=== PATIENT | female | born 1945 | race Caucasian/White ===

== ENCOUNTER 2023-10-17 08:29 | Emergency (ER) | payer MEDICARE, BC, SELFPAY ==
[2023-10-17 08:31] VITALS: BP 163/92
--- NOTE | 2023-10-17 09:02 | ED.GENMED ---
History of Present Illness
<Samara Brooks, CHEMICAL PROCESSOR - Last Filed: 10/17/23 22:23>
General
Chief Complaint: Eye Problems
Source: patient
Exam Limitations: none
Time Seen by Provider: 10/17/23 09:02
Nursing documentation reviewed up to this point in time: agreed with
Travel History
Have you had any contact with someone who has COVID-19?: No
Do you have any symptoms of coronavirus? Fever > 100 degrees, chills, cough, shortness of breath, sore throat, loss of taste or smell, muscle aches, or headache?: No
History of Present Illness
History of Present Illness:
78-year-old female with history of HTN, HLD presents stating her eyes have gotten progressively more red and swollen over past week. Went to 10/12 and has been applying Polymyxin B TMP eye drops 3-4 times a day with worsening symptoms. Two days
ago noted 'blisters' in her eyes. Wakens with eyes glued shut.
She had sinus stuffiness and nasal discharge the week before her symptoms started.
Denies change in vision, denies headache.
She did start using a new eye makeup remover 'Micellar' 3 days prior to symptoms
Continue present medications
Past History
<Samara Brooks, CHEMICAL PROCESSOR - Last Filed: 10/17/23 22:23>
Past History
ED Past Medical History: HTN and Hypercholesterolemia
Social History
Tobacco: Non-smoker
Alcohol: None
Personal:
Living: with family
Employment: Employed
Family History
Family History: Other (Father with a stroke, mother with CHF)
Review of Systems
<Samara Brooks, CHEMICAL PROCESSOR - Last Filed: 10/17/23 22:23>
Review of Systems
Allergies reviewed?: Yes
All Other Systems: ROS reviewed and negative except as documented in HPI and ROS
Constitutional: Denies fever
EENT: Reports other (Sinus stuffiness and tenderness, left neck tender node, blowing nose yellow mucus, redness and swelling, discharge both eyes. )
ABD/GI: Denies nausea or vomiting
Skin: Reports no symptoms
Neurological: Denies headache
Phy Exam
<Samara Brooks, CHEMICAL PROCESSOR - Last Filed: 10/17/23 22:23>
Physical Exam
Physical Exam:
GENERAL: No acute distress. A&Ox3.
CONSTITUTIONAL: Afebrile.
EYES: PERRL, conjunctivae injected, mild chemosis, EOMs intact, binates
Neck: Supple, mildly enlarge, mildly tender left cervical node
ENMT: moist mucus membranes, Pharynx nl, TMs normal, mild tenderness bilateral maxillary sinuses, clear nasal discharge, boggy tur
RESPIRATORY: Regular respirations, nonlabored, lungs clear.
CARDIOVASCULAR: Regular rate and rhythm, no murmurs, no rubs.
MUSCULOSKELETAL: Moves with ease. Well perfused.
SKIN: Warm, dry, pink
PSYCH: Normal mood and affect. Well kept, interactive and appropriate
NEUROLOGIC: Awake, alert and oriented. No focal neurological deficits
Course
<Samara Brooks, CHEMICAL PROCESSOR - Last Filed: 10/17/23 22:23>
Orders/Labs/Results
Orders:
Orders
10/17/23 09:20
Visual Acuity- Treatment ONCE
Vital Signs
Initial and Last Documented VS:
Initial Vital Signs
Temp Pulse Resp BP Pulse Ox
98 F 78 16 163/92 97
10/17/23 08:31 10/17/23 08:31 10/17/23 08:31 10/17/23 08:31 10/17/23 08:31
Last Documented Vital Signs
Temp Pulse Resp BP Pulse Ox
98 F 78 16 163/92 97
10/17/23 08:31 10/17/23 08:31 10/17/23 08:31 10/17/23 08:31 10/17/23 08:31
<Jhon De La Rosa DO - Last Filed: 10/17/23 09:34>
Orders/Labs/Results
Orders:
Orders
10/17/23 09:20
Visual Acuity- Treatment ONCE
Vital Signs
Initial and Last Documented VS:
Initial Vital Signs
Temp Pulse Resp BP Pulse Ox
98 F 78 16 163/92 97
10/17/23 08:31 10/17/23 08:31 10/17/23 08:31 10/17/23 08:31 10/17/23 08:31
Last Documented Vital Signs
Temp Pulse Resp BP Pulse Ox
98 F 78 16 163/92 97
10/17/23 08:31 10/17/23 08:31 10/17/23 08:31 10/17/23 08:31 10/17/23 08:31
<Samara Brooks CHEMICAL PROCESSOR - Last Filed: 10/17/23 22:23>
MDM/Problems Addressed
Differential Diagnosis Includes:
chemical conjunctivitis, sensitivity/allergy to eye drops
sinusitis viral vs bacterial
MDM/Problems Addressed:
78-year-old female with history of HTN, HLD presents stating her eyes have gotten progressively more red and swollen over past week. Went to 10/12 and has been applying Polymyxin B TMP eye drops 3-4 times a day with worsening symptoms. Two days
ago noted 'blisters' in her eyes. Wakens with eyes glued shut.
She had sinus stuffiness and nasal discharge the week before her symptoms started.
Denies change in vision, denies headache.
She did start using a new eye makeup remover 'Micellar' 3 days prior to symptoms
3 days after the sinus started bothering her she started getting irritation in both eyes
Her eyes are getting worse and now they are getting 'blisters'
No Augmentin's allergic to penicillin
No Bactrim pt on Lisinopril
Dr. De La Rosa in to evaluate, agrees, sinusitis, conjunctivitis most likely from Neomycin eye drops
Plan: Stop the eye drops
Rx for Doxycycline, Flonase and Prednisone sent to her pharmacy
<Samara Brooks, CHEMICAL PROCESSOR - Last Filed: 10/17/23 22:23>
*Critical Care Note
Total Time (30-74mins, 75-104mins- exclusive of procedures): Not Applicable
ED Attending Note
<Samara Brooks, CHEMICAL PROCESSOR - Last Filed: 10/17/23 22:23>
-
Portions of this chart may have been created with voice recognition software.� Occasional wrong word or��sound alike� substitutions may have occurred due to the inherent limitations of voice recognition software.
<Jhon De La Rosa, - Last Filed: 10/17/23 09:34>
ED Attending Note
Patient seen and examined by attending physician: Yes
I performed the substantive portion of visit, reviewed & personally made and approve the management plan that is documented in note by myself or MARIE.: Yes
ED Attending Note:
Patient is 78-year-old female presents with red watery eyes after being placed on polymyxin eyedrops for what was thought to be a bilateral conjunctivitis following nasal congestion and sinus pressure. That started 10 days ago. Patient states that
has not improved but the eyes are getting worse. Patient also noticed a mild swelling and pain in her left neck. Patient denies coughing or shortness of breath. On physical exam patient appears to be in good health. However patient does have
significantly injected conjunctiva bilaterally with increased tearing. Nares are swollen with clear rhinorrhea and mild tenderness over the sinuses. Oropharynx is clear. Neck is supple with a mildly tender anterior/submandibular node on the left.
Patient appears to have sinusitis. Also reaction to the eyedrops. Eyedrops will be stopped. Patiently placed on steroids and antibiotics.
Discharge Plan
Departure
Patient Disposition: Home (Routine Discharge)
Date of Disposition: 10/17/23
Time of Disposition: 09:28
Patient with high blood pressure during this ER visit?: No
Condition: Good
Discharge Problem:
Acute conjunctivitis, bilateral, Acute sinusitis
Instructions: Conjunctivitis (Noninfectious Pinkeye), Sinusitis, Adult ED
Prescriptions:
New
fluticasone propionate [Flonase Allergy Relief] 50 mcg/actuation spray,suspension
1 spray intranasal BID Qty: 16 0RF
doxycycline hyclate 100 mg capsule
100 mg PO BID Qty: 20 0RF
prednisone 20 mg tablet
40 mg PO DAILY Qty: 8 0RF
No Action
metoprolol succinate 200 MG tablet extended release 24 hr
200 mg PO BID
lisinopril 20 MG tablet
20 mg PO BID
hydralazine 25 MG tablet
25 mg PO BID
aspirin [Aspir-Low] 81 MG tablet,delayed release (DR/EC)
81 mg PO DAILY
docosahexaenoic acid-epa 1 CAP capsule
1 cap PO BID
Activity Restrictions/Additional Instructions:
As we discussed, stop the eyedrops.
I sent a prescription to your pharmacy for Flonase nasal spray, Prednisone steroid and doxycycline antibiotic. These should help your eyes and your sinuses.
See your doctor in 5 to 7 days if you are not much improved by then.
Interventions
Interventions:
*Risk Screen - Suicide Last Done: 10/17/23 08:31
*General Assessment Last Done: 10/17/23 08:31
*Neglect/Abuse Screening Last Done: 10/17/23 08:31
ED- Fall Risk Assessment Last Done: 10/17/23 09:38
*ED COVID-19 Vaccine History Last Done: 10/17/23 09:25
*Nursing Disposition Last Done: 10/17/23 09:48
Discharge Date and Time
Discharge Date/Time: 10/17/23 09:49
Print Language: ZAMBIAN
--- NOTE | 2023-10-17 09:47 | EDRN ---
Reviewed discharge instructions with patient.Verbalized understanding. Ambulated with steady gait to the lobby.
== END 2023-10-17 09:49 | disposition home or self-care (01) ==
LOC: EMR 08:29
PROVIDERS: EMERGENCY PHYSICIAN Emergency Medicine
DX: H10.33 Unspecified acute conjunctivitis, bilateral (principal); J01.90 Acute sinusitis, unspecified
CPT/HCPCS: 99283

== ENCOUNTER 2024-02-20 16:09 | Emergency (ER) | payer MEDICARE, BC, SELFPAY ==
[2024-02-20 16:18] VITALS: BP 160/74
--- NOTE | 2024-02-20 17:58 | ED.GENMED ---
History of Present Illness
General
Chief Complaint: Musculo-Skeletal Complaint
Source: patient
Exam Limitations: none
Time Seen by Provider: 02/20/24 17:18
Nursing documentation reviewed up to this point in time: agreed with
History of Present Illness
History of Present Illness:
78 y/o F with h/o htn
had a mechanical fall today while walking on her boat; got her right foot caught in a pile of carpets and then fell onto left side and her foot must have twisted
she doesn't know how she landed
she has pain/swelling medial and lateral ankle and right midfoot
unable to really weight bear, minimal at most
Past History
Past History
ED Past Medical History: HTN and Hypercholesterolemia
Social History
Tobacco: Non-smoker
Alcohol: None
Personal:
Living: with family
Employment: Employed
Family History
Family History: Other (Father with a stroke, mother with CHF)
Review of Systems
Review of Systems
Allergies reviewed?: Yes
All Other Systems: Not applicable
Phy Exam
Physical Exam
Physical Exam:
GENERAL: Alert , in no apparent distress, comfortable at rest
HEAD: NCAT
CV: 2+ DP PULSES B/L
NEUROLOGICAL: Alert and oriented, no focal neuro deficits, , 5/5 strength, sensation intact, ambulation slight limp right leg
SKIN: Warm and dry, no wounds
faint bruising midfoot right
MUSCULOSKELETAL: mild STS right ankle with tenderness to malleolus medially; pain with inversion and eversion;
no tenderness at the base of the 5th metatarsal, no other foot tenderness
no knee/prox tib/fib tenderness, full painless ROM;
PSYCH: Normal and appropriate interaction.
Course
Orders/Labs/Results
Orders:
Orders
02/20/24 16:22
Ankle, Right 3 view CR [CR Ankle - Right Min 3 Views *] Urgent
Comment:
Reason For Exam: pain
Foot, Right 3 View [CR Foot - Right Min 3 Views] Urgent
Comment:
Reason For Exam: pain with movement
02/20/24 18:06
CT Lower Ext W/o Iv Cont Rt Urgent
Comment:
Reason For Exam: eval foot fractures per radiology
02/20/24 18:12
Ibuprofen [Motrin] 600 mg PO NOW STA
02/20/24 18:19
Ibuprofen [Motrin] 600 mg .ROUTE .STK-MED ONE
Vital Signs
Initial and Last Documented VS:
Initial Vital Signs
Temp Pulse Resp BP Pulse Ox
98.2 F 69 20 160/74 98
02/20/24 16:18 02/20/24 16:18 02/20/24 16:18 02/20/24 16:18 02/20/24 16:18
Last Documented Vital Signs
Temp Pulse Resp BP Pulse Ox
98.2 F 71 18 138/77 99
02/20/24 16:18 02/20/24 18:15 02/20/24 18:15 02/20/24 18:15 02/20/24 18:15
MDM/Problems Addressed
Differential Diagnosis Includes:
ankle fx, foot fx, sprian
MDM/Problems Addressed:
78 y/o active F
tripped and fell causing right ankle/foot injury today while on a boat this morning
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
pain is mostly ankle an dmidfoot
on exam pt has swelling, tenderness to mid lateral foot and medial mall
her xrays were indep reviiewed and difficult tread
d/w rads, suspected multiple fx and recommended CT
ct confirms calcaneus fx and small avulsino of talus and navicular
d/w dr. cabrera from [facility] who recommenedd nonweight bearing, sugar tong and posterior splin and NWB
pt already has walker
*Critical Care Note
Total Time (30-74mins, 75-104mins- exclusive of procedures): Not Applicable
ED Attending Note
-
Portions of this chart may have been created with voice recognition software.� Occasional wrong word or��sound alike� substitutions may have occurred due to the inherent limitations of voice recognition software.
Discharge Plan
Departure
Patient Disposition: Home (Routine Discharge)
Date of Disposition: 02/20/24
Time of Disposition: 19:40
Patient with high blood pressure during this ER visit?: No
Condition: Fair
Discharge Problem:
Calcaneus fracture, Avulsion fracture of right talus, Closed navicular fracture of right ankle
Instructions: Foot Fracture (DC)
Prescriptions:
No Action
metoprolol succinate 200 MG tablet extended release 24 hr
200 mg PO BID
lisinopril 20 MG tablet
20 mg PO BID
hydralazine 25 MG tablet
25 mg PO BID
aspirin [Aspir-Low] 81 MG tablet,delayed release (DR/EC)
81 mg PO DAILY
docosahexaenoic acid-epa 1 CAP capsule
1 cap PO BID
fluticasone propionate [Flonase Allergy Relief] 50 mcg/actuation spray,suspension
1 spray intranasal BID Qty: 16 0RF
doxycycline hyclate 100 mg capsule
100 mg PO BID Qty: 20 0RF
prednisone 20 mg tablet
40 mg PO DAILY Qty: 8 0RF
Referrals:
Moreno Fraser MD [Active] - Follow up in 5-7 days (ortho [facility])
NONE,* [Family Provider] -
Activity Restrictions/Additional Instructions:
You have a fracture of your calcaneus bone which is your heel and 2 fractures within your foot/ankle called the navicular and the talus. For this you should be nonweightbearing. Use the walker or try to obtain a knee scooter to help keep your
weight off of your foot. Elevate is much as possible, Tylenol and ibuprofen for pain as needed. Call the orthopedics office on Thursday to see the him specialist. Return to the ER for any concerns
Interventions
Interventions:
*Risk Screen - Suicide Last Done: 02/20/24 18:07
*General Assessment Last Done: 02/20/24 18:07
*Neglect/Abuse Screening Last Done: 02/20/24 18:07
ED- Fall Risk Assessment Last Done: 02/20/24 18:07
*ED COVID-19 Vaccine History Last Done: 02/20/24 18:07
*Nursing Disposition Last Done: 02/20/24 20:34
ED-Musculoskeletal Assessment Last Done: 02/20/24 18:07
Discharge Date and Time
Discharge Date/Time: 02/20/24 20:35
Print Language: ALGERIAN
[2024-02-20 18:15] VITALS: BP 138/77
[2024-02-20] MEDS: MOTRIN 600 MG PO (18:19)
== END 2024-02-20 20:35 | disposition home or self-care (01) ==
LOC: EMR 16:09
PROVIDERS: EMERGENCY PHYSICIAN Emergency Medicine
DX: S92.024A Nondisplaced fracture of anterior process of right calcaneus, initial encounter for closed fracture (principal); S92.151A Displaced avulsion fracture (chip fracture) of right talus, initial encounter for closed fracture; S92.251A Displaced fracture of navicular [scaphoid] of right foot, initial encounter for closed fracture; W01.0XXA Fall on same level from slipping, tripping and stumbling without subsequent striking against object, initial encounter; I10 Essential (primary) hypertension
CPT/HCPCS: 99284; 73610; 73630; 73700

== ENCOUNTER → 2024-06-15 07:38 | Outpatient (REF) | payer MEDICARE, BC, SELFPAY | LOC: HWRCS 07:38 | PROVIDERS: ATTENDING PHYSICIAN Nuclear Medicine Nuclear Cardiology | DX: I10 Essential (primary) hypertension (principal); I44.7 Left bundle-branch block, unspecified; I51.7 Cardiomegaly; I35.0 Nonrheumatic aortic (valve) stenosis | CPT/HCPCS: 93306 ==

== ENCOUNTER 2025-05-30 11:11 | Emergency (ER) | payer MEDICARE, BC, SELFPAY ==
[2025-05-30 11:22] VITALS: BP 116/98
--- NOTE | 2025-05-30 11:40 | ED.MUSCINJ ---
HPI-Injury
General
Chief Complaint: Musculo-Skeletal Complaint
Source: patient
Exam Limitations: none
Time Seen by Provider: 05/30/25 11:28
Nursing documentation reviewed up to this point in time: agreed with
History of Present Illness-Injury
Initial Injury comments:
79-year-old female history of hypertension states she was running up the steps yesterday taking 2 steps at a time when she stepped up with her right knee, it gave out and she felt sudden severe pain. She did not fall. She has not been able to
weight-bear without significant pain since. She states the pain is mainly lateral aspect of the leg and radiating up into her hip and usp down her lateral lower leg.
Past History
Past History
ED Past Medical History: HTN and Hypercholesterolemia
Social History
Tobacco: Non-smoker
Alcohol: None
Personal:
Living: with family
Employment: Employed
Family History
Family History: Other (Father with a stroke, mother with CHF)
Phy Exam
Physical Exam
Physical Exam:
GENERAL: No acute distress. A&Ox3.
CONSTITUTIONAL: Afebrile.
RESPIRATORY: Regular respirations, nonlabored, lungs clear.
CARDIOVASCULAR: Regular rate and rhythm, no murmurs, no rubs.
GI: Soft, nontender, normal BS
MUSCULOSKELETAL: Moves with ease. Well perfused. Right leg without significant swelling, no significant tenderness to palpation but flexing the knee more than 30 degrees causes significant pain. Distal neurovascular intact.
SKIN: Warm, dry, pink
PSYCH: Normal mood and affect. Well kept, interactive and appropriate
NEUROLOGIC: Awake, alert and oriented. No focal neurological deficits
Injury Course
Orders/Labs/Results
Orders:
Orders
05/30/25 11:36
Knee, Right 4 or More Views [CR Knee- Right 4 Or More View*] Urgent
Comment:
Reason For Exam: pain after twisting
05/30/25 12:40
Knee Immobilizer Right-Treatme ONCE
MDM/Problems Addressed
Differential Diagnosis Includes:
Fracture, sprain, torn meniscus
MDM/Problems Addressed:
79-year-old female history of hypertension states she was running up the steps yesterday taking 2 steps at a time when she stepped up with her right knee, it gave out and she felt sudden severe pain. She did not fall. She has not been able to
weight-bear without significant pain since. She states the pain is mainly lateral aspect of the leg and radiating up into her hip and usp down her lateral lower leg.
Xray right knee read by this examiner: No acute bony abnormality.
Knee immobilizer applied.
Referred to orthopedics, has seen Laura in the past.
Patient has a cane and crutches at home to use if needed. She is out of bed and ambulating with a significant limp after the knee immobilizer is applied
*Pulse Oximetry
SaO2: 98
Oxygen Mode of Delivery: Room air
Patient hypoxic: not evaluated
*Critical Care Note
Total Time (30-74mins, 75-104mins- exclusive of procedures): Not Applicable
ED Attending Note
-
Portions of this chart may have been created with voice recognition software.� Occasional wrong word or��sound alike� substitutions may have occurred due to the inherent limitations of voice recognition software.
Discharge Plan
Departure
Patient Disposition: Home (Routine Discharge)
Date of Disposition: 05/30/25
Time of Disposition: 12:45
Patient with high blood pressure during this ER visit?: No
Condition: Good
Discharge Problem:
Injury of right knee
Instructions: Internal Derangement of the Knee (DC), Knee Immobilizer (DC), Using Cold for Pain
Prescriptions:
No Action
metoprolol succinate 200 MG tablet extended release 24 hr
200 mg PO BID
lisinopril 20 MG tablet
20 mg PO BID
hydralazine 25 MG tablet
25 mg PO BID
aspirin [Aspir-Low] 81 MG tablet,delayed release (DR/EC)
81 mg PO DAILY
docosahexaenoic acid-epa 1 CAP capsule
1 cap PO BID
fluticasone propionate [Flonase Allergy Relief] 50 mcg/actuation spray,suspension
1 spray intranasal BID Qty: 16 0RF
doxycycline hyclate 100 mg capsule
100 mg PO BID Qty: 20 0RF
prednisone 20 mg tablet
40 mg PO DAILY Qty: 8 0RF
Referrals:
NONE,* [Family Provider, Internal Medicine]
Graham Stoddard MD [Active, Orthopedics] - Next open appointment
Activity Restrictions/Additional Instructions:
As we discussed, wear the knee immobilizer at all times when up and around until further instructed by the orthopedic doctor.
Call the orthopedic doctors office today and make next available appointment for sometime within the next 2 weeks.
Tylenol or ibuprofen as needed for pain.
Rest, apply cold compress 20 minutes off and on today and tomorrow as much as you can.
Interventions
Interventions:
*Risk Screen - Suicide Last Done: 05/30/25 11:22
*General Assessment Last Done: 05/30/25 11:22
*Neglect/Abuse Screening Last Done: 05/30/25 11:22
*ED- Fall Risk Assessment Last Done: 05/30/25 11:34
*ED COVID-19 Vaccine History Last Done: 05/30/25 11:34
*ED Influenza Vaccine History Last Done: 05/30/25 11:34
*Nursing Disposition Last Done: 05/30/25 13:01
ED-Musculoskeletal Assessment Last Done: 05/30/25 11:34
Discharge Date and Time
Discharge Date/Time: 05/30/25 13:02
Print Language: IRISH
== END 2025-05-30 13:02 | disposition home or self-care (01) ==
LOC: EMR 11:11
PROVIDERS: EMERGENCY PHYSICIAN Emergency Medicine
DX: S89.91XA Unspecified injury of right lower leg, initial encounter (principal); X50.1XXA Overexertion from prolonged static or awkward postures, initial encounter; Y93.02 Activity, running; I10 Essential (primary) hypertension; E78.00 Pure hypercholesterolemia, unspecified; Z79.82 Long term (current) use of aspirin; Z82.49 Family history of ischemic heart disease and other diseases of the circulatory system
CPT/HCPCS: 99283; 29505; 73564; 99284